=== PATIENT | male | born 2000 | race Two or more races ===

== ENCOUNTER 2024-12-30 06:06 | Emergency (ER) | payer OTHER ==
[~2024-12-30] VITALS: Ht 188 cm; Wt 79.4 kg
[2024-12-30] MEDS ORDERED: ZOLOFT25 MG (06:20)
[2024-12-30] MEDS ORDERED: ZYPREXA20 MG (06:21)
[2024-12-30] MEDS ORDERED: KETOROLAC TROMETHAMINE 30 MG VIAL IM STA (08:24)
[2024-12-30] MEDS ORDERED: CEFTRIAXONE SODIUM 1,000 MG VIAL IM STA (08:25)
[2024-12-30] MEDS ORDERED: KETOROLAC TROMETHAMINE 30 MG VIAL ONE (08:28)
[2024-12-30] MEDS ORDERED: CEFTRIAXONE SODIUM 1,000 MG VIAL ONE (08:29)
== END 2024-12-30 08:46 | disposition home or self-care (01) ==
LOC: ER 06:06
DX: J03.90 Acute tonsillitis, unspecified (principal); Z91.013 Allergy to seafood